=== PATIENT | female | born 1935 | race Caucasian/White ===

== ENCOUNTER → 2016-11-28 | Day surgery (SDC) | payer OTHER ==
[~2016-11-28] MED LIST: BUPIVACAINE/EPINEPHRINE 0.25% 50 ML VIAL ONE; ISOSULFAN BLUE 50 MG/5 ML VIAL SQ ONE; LACTATED RINGER'S 1000 ML INJ 1,000 ML ONE; MEPERIDINE HCL 25 MG/ML VIAL ONE; MIDAZOLAM HCL 2 MG/2 ML VIAL ONE; ONDANSETRON HCL 4 MG/2 ML VIAL IV PUSH ONE; PROPOFOL 100 MG/10 ML INJ IV ONE; ZOFR4TAB3 SL; ceFAZolin 2 GM PREMIX 50 ML ONE
--- NOTE | 2016-11-28 14:10 | TN ---
cc: AMIE GEORGE M.D. DATE OF SURGERY: 11/28/2016 PREOPERATIVE DIAGNOSIS 1. Left breast cancer. 2. History of right breast cancer. POSTOPERATIVE DIAGNOSIS 1. Left breast cancer. 2. History of right breast cancer. PROCEDURE PERFORMED 1. Right simple mastectomy. 2. Left simple mastectomy with sentinel lymph node excision x2. SURGEON Amie George MD IT SOFTWARE ENGINEER MONICA Caballero ANESTHESIA General endotracheal, Dr. Mei. COMPLICATIONS None. INDICATIONS FOR PROCEDURE Ms. Kothari is a pleasant 81-year-old female who was noted to have a mammographic abnormality in her left breast. She underwent stereotactic biopsy and it was found to be an invasive ductal carcinoma. The patient has a history of an invasive ductal carcinoma on the right breast and she underwent lumpectomy and sentinel node. Because she has had bilateral cancer she requested bilateral mastectomy. Risks and benefits of bilateral mastectomy with sentinel node excision on the left was discussed with her and she was agreeable. DETAILS OF PROCEDURE The patient was identified, brought to the operating room and placed supine on the operating table. After adequate general anesthesia was achieved with LMA, the anterior chest and axilla were prepped and draped in standard surgical fashion. 0.25% Marcaine was injected into the skin and subcutaneous tissue around both breasts, performing a chest wall block. 5 ccs of isosulfan blue was then injected into the left periareolar space. Attention was first directed to the right breast where an elliptical skin incision was used to excise the breast and nipple-areolar complex. Subcutaneous skin flaps were raised cephalad to the clavicle, medially to the sternum, inferiorly to the inframammary ridge and laterally to the midaxillary line. Breast was then dissected off the pectoralis major muscle using electrocautery Bovie. Once the axillary tail was achieved, it was transected. A short stitch was placed superior, long stitch was placed lateral to the orient the breast. The wound was copiously irrigated with normal saline solution. All bleeding points were controlled with electrocautery Bovie. A 7-Luxembourgish Everardo-Garcia drain was then inserted through a separate stab wound incision after anesthetizing the skin and subcutaneous tissue with 0.25% Marcaine. The wound was then closed in two layers using 2-0 and 3-0 Vicryl and a subcuticular 4-0 Vicryl. Sterile dressings were applied. Attention was now directed to the left breast. In the left breast a similar elliptical skin incision was used to include the skin of the overlying breast and nipple-areolar complex. Subcutaneous skin flaps were then raised cephalad to the clavicle, medially to the sternum, inferiorly to the inframammary ridge and laterally to the midaxillary line. The breast was then dissected off the pectoralis major muscle, all the way to the axillary tail. The two blue nodes were identified. They were included with the specimen. Specimen was then removed and a short stitch placed superior, long stitch was placed lateral. The probe was then brought up onto the operative field. First sentinel node was checked and excised and found to have a 10-second count of 2362 and was noted to be blue. Adjacent to this was another blue node. This node was also excised and found have a 10-second count of 245. These were labeled sentinel node package #1 and 2. On direct palpation I could not palpate any additional nodes within the axillary tail. By direct visualization I could see no enlarged axillary nodes in the axilla or any blue dye. The probe was used to check the axilla and there was only minimal background of activity noted. By direct palpation there was no palpable nodes in the left axilla. At this point I felt comfortable that we had the sentinel nodes. Specimens were all sent to pathology. The wound was copiously irrigated with normal saline solution. A 7-Lux[place]bourgish Everardo-Garcia drain was brought through a separate stab wound incision after anesthetizing the skin and subcutaneous tissue with 0.25% Marcaine. The wound was then closed in two layers using 2-0, 3-0 Vicryl and a 4-0 Vicryl subcuticular. Sterile dressings were applied and the patient was awakened, brought to recovery in stable condition. Please note the DEFENSE ATTORNEY certified nursing assistant was medically necessary due to her advanced surgical skills and extensive knowledge of my surgical technique. MD BOUCHRA Cardoso/NICOLASA /1:30 PM /1:50 PM SUSANNE
== END | disposition home or self-care (01) ==
LOC: ESDC 06:49
PROVIDERS: ATTEND Surgery Trauma Surgery
DX: C50.912 Malignant neoplasm of unspecified site of left female breast (principal); Z85.3 Personal history of malignant neoplasm of breast
CPT/HCPCS: 00400; 01610; 19303; 38525; 38792; 88307; J0690; J2175; J2250; J2405; J3010; J7120; Q9968

== ENCOUNTER 2016-12-04 23:58 | Emergency (ER) | payer OTHER ==
[~2016-12-04] VITALS: Ht 165.1 cm; Wt 51.4 kg
[2016-12-05 00:03] VITALS: BP 198/94; PULSE 74; RESP 20; TEMP 97.5; O2SAT 99
[2016-12-05 00:15] VITALS: BP 198/94; PULSE 92; RESP 16; O2SAT 99
[2016-12-05] MEDS ORDERED: SOD PHOSPHATE/SOD BIPHOSPHATE (ADULT) ENEMA 133ML RECTAL ONE (00:30)
--- NOTE | 2016-12-05 00:57 | PD ---
HPI Chief Complaint: GI Complaint Time Seen by Provider: 00:26 Travel History International Travel<30 days: No Contact w/Intl Traveler<30days: No Traveled to known affect area: No History of Present Illness HPI 81-year-old female presents to the emergency department by private transportation the care of her spouse for complaint of constipation. Patient underwent bilateral mastectomy 11/28/16 for diagnosis of invasive ductal carcinoma of the left breast. Patient had left-sided sentinel lymph node excision. Patient also had right mastectomy. No lymph node excision on the right. No fever no chills. Patient has Gila drain in place with decreased serous drainage. Patient has had poor oral intake and poor appetite. Patient is prescribed oxycodone 10 mg every 4 hours as needed for pain. Patient started noting no stool or flatus for the past few days initially postoperatively had poor appetite and no concerns about decreased bowel movements. Patient use Dulcolax suppository without relief and used a medication she had purchased in [place] which seemed to worsen constipation symptoms. Patient has not contacted her managing surgeon/physician regarding these symptoms. No report of melena or hematochezia. Patient has had nausea no vomiting. Patient rates rectal pain and tenesmus 9-10 over 10 in intensity. PFSH Past Medical History Narrative Medical Breast cancer, bilateral mastectomy; no tobacco use; nursing notes reviewed ?: Not Past Surgical History Other Surgery: Yes (DOUBLE MASTECTOMY 11/28/16) Social History Alcohol Use: No Tobacco Use: No Substance Use: No Allergies-Medications (Allergen,Severity, Reaction): Coded Allergies: No Known Allergies (Unverified , 12/05/16) Reported Meds & Prescriptions Reported Meds & Active Scripts Active Narrative Medication Percocet 10/325 once daily Review of Systems Except as stated in HPI: all other systems reviewed are Neg General / Constitutional: No: Fever, Chills HENT: No: Congestion Cardiovascular: No: Chest Pain or Discomfort Respiratory: No: Shortness of Breath Gastrointestinal: Positive: Nausea, Abdominal Pain (rectal pain), Constipation , No: Vomiting, Diarrhea Genitourinary: Positive: Decreased Urinary Output, No: Dysuria Musculoskeletal: No: Myalgias, Arthralgias Skin: No Rash Neurologic: No: Weakness Psychiatric: Positive: Anxiety Hematologic/Lymphatic: No: Easy Bruising Physical Exam Narrative GENERAL: Well-developed well-nourished female in acute distress no respiratory distress SKIN: Warm and dry. HEAD: Normocephalic. EYES: No scleral icterus. No injection or drainage. NECK: Supple, trachea midline. No JVD or lymphadenopathy. CARDIOVASCULAR: Regular rate and rhythm without murmurs, gallops, or rubs. Chest wall bilateral dressings and bilateral mastectomy site without redness induration or purulent drainage; bilateral [place] drains in place with small amount of serous drainage in each collection device. RESPIRATORY: Breath sounds equal bilaterally. No accessory muscle use. GASTROINTESTINAL: Abdomen soft, mild bilateral lower quadrant abdominal tenderness to palpation without guarding or rebound, nondistended. Rectal exam normal sphincter tone large stool bolus in the rectal vault patient intolerant of attempted digital disimpaction. MUSCULOSKELETAL: No cyanosis, or edema. BACK: Nontender without obvious deformity. No CVA tenderness. Data Data Last Documented VS Vital Signs Date Time Temp Pulse Resp B/P Pulse Ox O2 Delivery O2 Flow Rate FiO2 12/05/16 02:10 87 16 187/72 99 Room Air 12/05/16 00:03 97.5 Orders Fleets Enema (Adult) (Fleets Enema (Adul (12/05/16 00:30) Abdomen, Kub Only (12/05/16 ) Cath For Specimen (12/05/16 02:40) Urinalysis - C+S If Indicated (12/05/16 02:40) Basic Metabolic Panel (Bmp) (12/05/16 02:40) Magnesium Citrate Liq (Citroma Liq) (12/05/16 03:00) Ondansetron Odt (Zofran Odt) (12/05/16 03:00) Labs Laboratory Tests Test 12/05/16 12/05/16 03:00 03:05 Urine Collection Type CATH Urine Color YELLOW Urine Turbidity CLEAR Urine pH 5.5 Urine Specific [place] 1.014 Urine Protein NEG mg/dL Urine Glucose (UA) NEG mg/dL Urine Ketones NEG mg/dL Urine Occult Blood TRACE Urine Nitrite NEG Urine Bilirubin NEG Urine Leukocyte Esterase NEG Urine RBC 0-3 /hpf Urine Squamous Epithelial 0-5 /hpf Cells Urine Amorphous Sediment FEW Urine Hyaline Casts 0-2 /lpf Urine Mucus MOD /lpf Microscopic Urinalysis Comment CULT NOT INDICATED Sodium Level 134 MEQ/L Potassium Level 4.1 MEQ/L Chloride Level 98 MEQ/L Carbon Dioxide Level 28.3 MEQ/L Anion Gap 8 MEQ/L Blood Urea Nitrogen 13 MG/DL Creatinine 0.85 MG/DL Estimat Glomerular Filtration 64 ML/MIN Rate Random Glucose 137 MG/DL Calcium Level 8.8 MG/DL [facility] Medical Decision Making Medical Screen Exam Complete: Yes Emergency Medical Condition: Yes Medical Record Reviewed: Yes Interpretation(s) ABD KUB: FINDINGS: Supine view of the abdomen was performed. The abdominal bowel gas pattern is normal. No abnormal masses, or organomegaly is seen. The osseous structures are unremarkable. Large round calcification right mid abdomen could be a gallstone or renal stone CONCLUSION: Large calcification overlying the right midabdomen. Bowel gas pattern is unremarkable Patricio Grimes MD on December 05, 2016 at 1:26 Board Certified Radiologist. This report was verified electronically. bmp: bun/cr values wnl; decreased gfr ua: trace blood o/w wnl Differential Diagnosis Constipation-slow transit versus narcotic induced versus dehydration versus bowel obstruction Narrative Course Attempted digital disimpaction which was not tolerated by the patient; therefore patient given fleets enema as she had had a Dulcolax suppository and did not want additional suppository administered and flat and upright abdomen pelvis x-ray obtained @ 01:14 patient returned from XR -- reportedly BM on floor in XR dept @ 01:55 AM patient able to allow additional attempt at digital disimpaction which she has tolerated better with some successful stool removal @ 02:55 again patient agrees to additional digital disimpaction several walnut sized clumps of stool removed; no bleeding; patient reports urge to have a BM; given half bottle of mag citrate and oral hydration @ 3:45 AM patient feels clinically improved has had a bowel movement and basic metabolic panel values grossly normal range urinalysis shows no sign of infection. Patient is taking oral hydration well. Patient will be discharged with prescription for Zofran to take as needed and different options for assisting with bowel movement alleviating constipation have been discussed in detail with the patient. Diagnosis Primary Impression: Constipation due to slow transit Referrals: Primary Care Physician call for appointment Additional Instructions: Increase fluid hydration--add clear liquids ( flat sprite, flat camden frances, Jell -O, popsicles, chicken rice, and/or chicken noodle soup) and progress to soft diet to regular diet as tolerated Monitor temperature for fever take acetaminophen/Tylenol as needed for fever 100.4F or greater May use ujje-usw-waqskjy magnesium citrate to help with bowel movements and/or Fleet's enema, as well as, MiraLAX daily per package directions until stools become more frequent and then decreased to every other day and then to twice a week and then once a week while increasing physical activity gradually based on recommendations of your managing surgeon Decrease narcotic use as tolerated May use as needed on occasion and additional Dulcolax suppository or an additional fleets enema Return to the emergency for for any concerns Follow-up with your primary care physician/managing surgeon Med/Other Pt SpecificInfo: Prescription(s) given Scripts Ondansetron Odt (Zofran Odt)4 Mg Tab4 Mg SL Q6HR PRN (Nausea/Vomiting) #10 TAB Ref 0 Prov:Tamara Mike MD 12/05/16 Disposition: 01 DISCHARGE HOME Condition: Stable Tamara Mike MD Dec 05, 2016 00:57
--- NOTE | 2016-12-05 01:28 | RADHPO ---
EXAM DATE/TIME: 12/05/2016 01:00 [facility] COMPARISON: No previous studies available for comparison. INDICATIONS : Constipation. MEDICAL HISTORY : Carcinoma, breast. SURGICAL HISTORY : Mastectomy, bilateral. ENCOUNTER: Initial ACUITY: 1 week PAIN SCORE: 10/10 LOCATION: all quadrants. FINDINGS: Supine view of the abdomen was performed. The abdominal bowel gas pattern is normal. No abnormal ma sses, or organomegaly is seen. The osseous structures are unremarkable. Large round calcification ri ght mid abdomen could be a gallstone or renal stone CONCLUSION: Large calcification overlying the right midabdomen. Bowel gas pattern is unremarkable Patricio Grimes MD on December 05, 2016 at 1:26 Board Certified Radiologist. This report was verified electronically.
[2016-12-05 02:10] VITALS: BP 187/72; PULSE 87; RESP 16; O2SAT 99
[2016-12-05] MEDS ORDERED: MAGNESIUM CITRATE SOLN 300 ML BTL PO ONE (03:00)
[2016-12-05] MEDS ORDERED: ONDANSETRON ODT 4 MG TAB PO ONE (03:00)
[2016-12-05 03:23] LABS: BLOOD, URINE TRACE (NEG); GLUCOSE,URINE NEG (NEG); KETONE, URINE NEG (NEG); NITRITE,URINE NEG (NEG); PH, URINE 5.5 (5.0-8.5)
[2016-12-05 03:25] LABS: POTASSIUM 4.1 MEQ/L (3.5-5.1)
[2016-12-05 03:30] LABS: BICARBONATE 28.3 MEQ/L (21.0-32.0)
[2016-12-05 03:32] LABS: METHOD OF COLLECTION CATH; URINE COLOR YELLOW (YELLW/STRAW)
[2016-12-05 03:33] LABS: MUCUS URINE MOD /lpf (OCC); RBC, URINE 0-3 /hpf (0-3); SQUAMOUS EPITHELIAL CELL URINE 0-5 /hpf (0-5)
[2016-12-05 03:34] LABS: COMMENT (UR) CULT NOT INDICATED; CULTURE IF INDICATED CULT NOT INDICATED; HYALINE CAST, URINE 0-2 /lpf (RARE)
[2016-12-05] MEDS ORDERED: ZOFR4TAB3 SL (03:45)
[2016-12-05 03:54] VITALS: BP 151/88; TEMP 98
== END 2016-12-05 05:22 | disposition home or self-care (01) ==
LOC: PHED 23:58
DX: K59.01 Slow transit constipation (principal); Z85.3 Personal history of malignant neoplasm of breast; Z90.13 Acquired absence of bilateral breasts and nipples
CPT/HCPCS: 74000; 80048; 81001; 99284; P9612